=== PATIENT | male | born 1965 | race Caucasian/White ===

== ENCOUNTER 2020-07-23 15:33 | Emergency (ER) | payer OTHER ==
[~2020-07-23] VITALS: Ht 170.2 cm; Wt 113.4 kg
[2020-07-23 15:47] VITALS: BP 134/81
[2020-07-23] MEDS ORDERED: AZIT250T PO (15:54)
[2020-07-23] MEDS ORDERED: METH4TAB17 PO (15:54)
== END 2020-07-23 15:56 | disposition home or self-care (01) ==
LOC: ER 15:33
DX: U07.1 COVID-19 (principal); Z79.899 Other long term (current) drug therapy